=== PATIENT | female | born 1980 | race Two or more races ===

== ENCOUNTER 2023-11-20 14:57 | Emergency (ER) | payer BC, SELFPAY ==
--- NOTE | 2023-11-20 15:12 | ED.PSYCH ---
HPI - Psych General Chief Complaint: Psychiatric Symptoms Stated Complaint: SI Source: patient Mode of arrival: EMS Limitations: no limitations History of Present Illness HPI Narrative: 43 yo female with depression, RA, mixed connective tissue disease, severe pain, reported stroke with R sided weakness here with c/o worsening depression due to the fact that she is always in pain she cannot work due to her R hand weak and she has to work. Seen by [facility] and sent here as she felt hopeless and suicidal. No plan MD complaint: suicidal ideation, feels depressed and anxiety Onset (ago): month(s) Duration: getting worse History of same: Yes Relieving factors: none Exacerbating factors: other Context: significant life stressor Associated psychiatric symptoms: depression and suicidal ideation Associated symptoms: other (chronic pain) Treatments prior to arrival: none If self harm: admits thoughts of self harm Related Data Allergies Allergy/AdvReac Type Severity Reaction Status Date / Time shellfish derived Allergy Difficulty Verified 11/20/23 15:41 Breathing clindamycin AdvReac Rash Verified 11/20/23 15:39 gentamicin AdvReac Rash Verified 11/20/23 15:41 Sulfa (Sulfonamide AdvReac Rash Verified 11/20/23 15:41 Antibiotics) Review of Systems Review of Systems: Constitutional : No Fever, No Chills ENT/Mouth : No Ear Pain, No Hoarseness, No sore throat Eyes: No Eye Pain, No Swelling, No Redness, No Foreign Body Cardiovascular : No Chest Pain, No SOB Respiratory : No Cough, No Dyspnea Gastrointestinal : No Nausea, No Vomiting, No Diarrhea, No abdominal Pain Genitourinary : No Dysuria, No Hematuria Musculoskeletal : positive joint pain, pos Myalgias, No Joint Swelling Skin : No Skin lacerations, No rash Neuro : No Weakness, No Numbness, No Loss of Consciousness, No Dizziness, No Headache Psych : pos Anxiety/Panic, pos Depression, pos SI All other systems reviewed and are negative [facility] Past Medical History Attestation statement: The following information was validated with the patient. Medical History Sravanthi's disease Depression Mixed connective tissue disease Rheumatoid arthritis Social History Social History (Updated 11/20/23 @ 15:40 by Anna Esposito DO) Patient Tobacco Use Status: Never used Tobacco Physical Exam Vital Signs: Vital Signs: Last Vital Signs Temp 97.4 F 11/20/23 15:32 Pulse 87 11/20/23 15:32 Resp 18 11/20/23 15:32 BP 115/75 11/20/23 15:32 Pulse Ox 98 11/20/23 15:32 O2 Del Method Room Air 11/20/23 15:32 BMI result Body Mass Index 23.2 Appearance: Alert. Oriented X3. No acute distress. Anxious and tearful Eyes: Pupils equal, round and reactive to light. ENT: Pharynx normal. Neck: Normal inspection. Neck supple. CVS: Normal heart rate and rhythm. Pulses normal. Respiratory: No respiratory distress. Breath sounds normal. Abdomen: Soft and non-tender. Skin: Skin warm and dry. Normal skin color. Normal skin turgor. Extremities: No lower extremity edema. No calf ttp Neuro: Oriented X 3. No motor deficit. No sensory deficit. CN 2-12 intact Course Course Course Narrative: labs not done at sign out Physician observation started at 352pm. Patient placed in physician observation because the patient needed more time for CARE team to assess the need for psych admission. At the time observation was started the patient's vitals were stable, patient is alert and oriented but very anxious Neuro: nonfocal, CV RRR, Lungs clear Medical Decision Making Medical Decision Making MDM Narrative: 43 yo female with depression, RA, mixed connective tissue disease, severe pain, reported stroke with R sided weakness here with c/o chronic pain now that exacerbates her depression and she reported to [facility] she has SI she tells me [facility] told her she would see many specialists here to help her figure out what has been bother her for months - I explained to her this would be done outpatient but her mental health concerns would be addressed in the ED. labs and CARE team consult ordered. Differential Diagnosis Differential Diagnoses: The differential diagnosis associated with the presentation includes depresison, anxiety Admission/Observation Consideration of admission/observation: Escalation of care including admission/observation considered until seen by CARE team Lab Data [facility] Lab Attestation statement: I reviewed the patient's lab results. Independent Historian Clinical information obtained from an independent historian. History obtained from or confirmed by: EMS External Record Review External record reviewed: Outpatient record Discharge Plan Discharge Clinical Impression: Acute anxiety Patient Disposition: Still a Patient
[2023-11-20 15:32] VITALS: BP 115/75; PULSE 87; RESP 18; TEMP 36.3; O2SAT 98; BMI 23.2
--- NOTE | 2023-11-20 15:43 | MHC.CARE ---
Per [facility] , Pt came for [facility] secondary to pain. Unclear if they are holding a bed for patient to return upon medical clearance. CARE Team awaiting call back from nurse.?
[2023-11-20 16:03] LABS: MANUAL DIFF FLAG NO
[2023-11-20 16:06] LABS: Basophils Percent Auto 0.7 % (0-2); Eosinophils Absolute Auto 0.3 X10*3/uL (0.0-0.4); Eosinophils Percent Auto 4.6 % (0-4); Hematocrit 35.8 % (37.0-47.0); Hemoglobin 12.3 g/dl (12.0-16.0); Imm Gran Abs Auto 0.01 X10*3/uL (0.00-0.03); Imm Gran Pct Auto 0.2 % (0.0-0.4); Lymphocytes Absolute Auto 1.7 X10*3/uL (1.2-4.9); Mean Corpuscular HGB Conc 34.4 g/dl (31.0-35.0); Mean Corpuscular Hemoglobin 30.1 pg (27.0-33.0); Mean Corpuscular Volume 87.5 fL (80.0-98.0); Mean Platelet Volume 10.7 fL (9.4-12.3); Monocytes Absolute Auto 0.5 X10*3/uL (0.1-1.2); Monocytes Percent Auto 8.8 % (2-11); Neutrophils Absolute Auto 3.4 x10*3/uL (2.0-8.3); Neutrophils Percent Auto 57.7 % (45-73); Platelet Count 214 X10*3/uL (160-400); Red Blood Count 4.09 X10*6/uL (4.20-5.50); Red Cell Distribution Width 12.1 % (11.0-16.0); White Blood Count 5.9 X10*3/uL (4.8-10.8)
[2023-11-20 16:07] LABS: Appearance Urine Clear; Color Urine Yellow; Glucose Urine UA Negative (Negative); Leukocyte Esterase Urine Trace (Negative); Nitrite Urine Negative (Negative); Specific Gravity - Urine 1.015 (1.005-1.025); UMIC TRIGGER UACC YES; UPreg QC Valid YES; Urine Blood Negative (Negative); Urine Ketones Trace mg/dL (Negative); Urine Pregnancy NEGATIVE (NEGATIVE); Urine Protein Negative (Neg-Trace)
[2023-11-20 16:12] LABS: Bacteria Urine None Seen (None Seen); Hyaline Casts Urine 0-2 /LPF (0-2); RBC Urine 0-2 /HPF (0-2); Squamous Epithelial Cell Urine 0-2 /HPF (0-2); WBC Urine 0-5 /HPF (0-5)
[2023-11-20 16:13] LABS: Amphetamine Screen Urine POSITIVE (Not Detect); Barbiturates, Urine Not Detected (Not Detect); Benzodiazepines Screen Urine Not Detected (Not Detect); Cannabinoid Screen Urine POSITIVE (Not Detect); Cocaine Screen Urine Not Detected (Not Detect); Fentanyl, urine Not Detected (Not Detect); Opiate Screen Urine Not Detected (Not Detect); Phencyclidine Screen Urine Not Detected (Not Detect)
[2023-11-20 16:15] LABS: COVID-19 Test Negative (Negative); IDNOW Serial# 152EDE1D
[2023-11-20 16:31] LABS: Acetaminophen LAB < 3 mcg/mL (<30); Alanine Aminotransferase 13 U/L (0-31); Albumin Level 4.3 g/dL (3.5-5.0); Alkaline Phosphatase 63 U/L (39-117); Anion Gap 13 (12-20); Aspartate Amino Transferase 20 U/L (5-31); Bilirubin Total 0.3 mg/dL (0.0-1.0); Blood Urea Nitrogen 16 mg/dL (9-16); Calcium 9.5 mg/dL (8.4-10.2); Carbon Dioxide 29 mmol/L (22-29); Chloride 102 mmol/L (96-108); Creatinine Clr Calc Pharmacy 59.8; Estimated Glomerular Filt Rate > 60; Ethanol < 10 mg/dL; Glucose Random 74 mg/dL (60-115); Potassium 4.8 mmol/L (3.3-5.1); Salicylate < 5.0 mg/dL (15-30); Sodium 139 mmol/L (135-145); Total Protein 6.6 g/dL (6.5-8.0)
[2023-11-20 16:53] VITALS: RESP 18
--- NOTE | 2023-11-20 17:32 | MHC.CARE ---
Pt put on a Section 12A prior to assessment. Spoke to [facility] supervisor paper machine who reported that Pt had been at their [facility] program for a day and appeared to be experiencing increased pain related to medical issues and depression. She reported that she believes Pt requires a higher level of care and pain management. They attempted to directly admit her to [facility] and?it fell through. She is asking the CARE Team for an evaluation. She reports she is willing to consider her referral if she does not meet [facility] or as a step-down from [facility] but no longer has a bed. T/W was met with push-back when she asked why a [facility] clinician did not provide an eval prior to Pt's visit to [facility] [place] ED. [facility] assessment faxed from 11/19/23.
--- NOTE | 2023-11-20 18:00 | PC.NURSE ---
oCny was BIBA and reports she was at a partial [facility] program and was c/o her chronic pain when they sent her to be medically cleared . She does endorse some passive SI but no plan and states it is constant and d/t her chronic pain. [facility] requests this hospital do a crisis assessment. Medication list faxed to pharmacy as it is extensive and she is reporting a number of pain medications. in visiting and she is currently resting.
[2023-11-21 03:14] VITALS: BP 117/70; PULSE 57; RESP 16; TEMP 36.4; O2SAT 100
[2023-11-21] MEDS: oxyCODONE HCl Immed Release 5 MG TABLET 10 MG PO (03:37)
[2023-11-21] MEDS: clonazePAM 1 MG TABLET PO (03:37)
--- NOTE | 2023-11-21 11:19 | PC.NURSE ---
Called pharmacy about medication rec. they have medication list at this time
--- NOTE | 2023-11-21 11:44 | PHA.MEDREC ---
Pharmacy Consult ? Medication Reconciliation Pharmacy has completed the medication reconciliation. Utilized med list sent to pharmacy. Spoke to pt as well to confirm meds not on med list.
[2023-11-21] MEDS: Cyanocobalamin (Vitamin B-12) 1,000 MCG TABLET 1000 MCG PO (11:54)
[2023-11-21] MEDS: Sucralfate 1 GM TABLET PO (11:54)
[2023-11-21] MEDS: buPROPion HCl XL 150 MG TAB.ER.24H PO (11:54)
[2023-11-21] MEDS: DULoxetine HCl 60 MG CAPSULE.DR 120 MG PO (11:54)
[2023-11-21] MEDS: Hydroxychloroquine Sulfate 200 MG TABLET PO (11:54)
[2023-11-21] MEDS: NaPROXEN 500 MG TABLET PO (11:54)
[2023-11-21] MEDS: hydrOXYzine HCL 25 MG TABLET PO (12:25)
[2023-11-21] MEDS: Dextroamphetamine/Amphetamine XR 10 MG CAP.ER.24H PO (13:39)
[2023-11-21] MEDS: Amphetamine Mixed Salts 10 MG TABLET 5 MG PO (13:39)
[2023-11-21] MEDS: Pregabalin 150 MG CAPSULE PO (13:39)
--- NOTE | 2023-11-21 15:21 | MHC.CARE ---
Safety plan as developed with Pt, a copy has been placed in her file. Pt was also provided with [facility] Neurology number for follwo up. Dr. Esposito was notified and agreed for discharge.
== END 2023-11-21 16:40 | disposition home or self-care (01) ==
PROVIDERS: Emergency Provider Emergency Medicine
DX: F41.9 Anxiety disorder, unspecified (principal); F32.A Depression, unspecified; R45.851 Suicidal ideations; Z11.52 Encounter for screening for COVID-19
CPT/HCPCS: 80053; 80143; 80179; 80307; 81001; 81025; 84443; 85025; 87635; 99285; S9485